=== PATIENT | male | born 1970 | race Caucasian/White ===

== ENCOUNTER 2018-02-24 10:44 | Emergency (ER) | payer BC ==
[2018-02-24 11:56] VITALS: BP 120/70
[2018-02-24] MEDS ORDERED: Tetracaine 0.5% OPTH.SOL 4 ML* 1 DROP BTL ONE (11:58)
[2018-02-24] MEDS ORDERED: BSS OPTH.SOL* BTL ONE (11:58)
[2018-02-24] MEDS ORDERED: Fluorescein Sod TOPICAL 0.6* 0.6 MG TEST OPHTHALMIC ONE (11:58)
--- NOTE | 2018-02-24 13:30 | UC ---
Eye Complaint HPI - HPI Summary HPI Summary: states he woke up yesterday with foreign body sensation on left eye. He states wearing his contact lenses does not bother him. denies discharge but c/o mild photophobia. - History of Current Complaint Chief Complaint: UCEye Stated Complaint: LEFT EYE CONCERN Time Seen by Provider: 02/24/18 12:23 Hx Obtained From: Patient Onset/Duration: Sudden Onset, Lasting Days Timing: Constant Severity Currently: Moderate Pain Intensity: 5 Pain Scale Used: 0-10 Numeric Location of Injury: Globe Character: Foreign Body Sensation Aggravating Factor(s): Nothing Alleviating Factor(s): Nothing Associated Signs And Symptoms: Positive: Photophobia Related History: Similar Episode, Diagnosed As: - corneal abrassion - Risk Factors Penetrating Injury Risk Factor: Negative Globe Rupture Risk Factors: Negative Acute Glaucoma Risk Factors: Negative Optic Artery Occlusion Risk Factors: Negative - Allergies/Home Medications Allergies/Adverse Reactions: Allergies Allergy/AdvReac Type Severity Reaction Status Date / Time No Known Allergies Allergy Verified 02/24/18 11:56 PMH/Surg Hx/FS Hx/Imm Hx Previously Healthy: Yes Endocrine History: Dyslipidemia GI/ History: Gastroesophageal Reflux - Surgical History Surgical History: None - Family History Known Family History: Positive: None - Social History Alcohol Use: Occasionally Substance Use Type: None Smoking Status (MU): Former Smoker Type: Cigarettes Have You Smoked in the Last Year: Yes When Did the Patient Quit Smoking/Using Tobacco: JANUARY 2013 Review of Systems Constitutional: Negative Skin: Negative Eyes: Photophobia ENT: Negative Respiratory: Negative Cardiovascular: Negative Gastrointestinal: Negative Genitourinary: Negative All Other Systems Reviewed And Are Negative: Yes Physical Exam Triage Information Reviewed: Yes Appearance: Well-Appearing, Obese Vital Signs: Initial Vital Signs Temp 98.0 F 02/24/18 11:54 Pulse 64 02/24/18 11:54 Resp 16 02/24/18 11:54 BP 120/70 02/24/18 11:54 Pulse Ox 97 02/24/18 11:54 Vital Signs Reviewed: Yes Eyes: Positive: Conjunctiva Inflamed, Other: - fluorescein uptake on left cornea at 7o'clock, no FB upon inversion of upper eyelid ENT: Positive: Hearing grossly normal, Pharynx normal Neck: Positive: Supple, Nontender, No Lymphadenopathy Eye Complaint Course/Dx - Course Course Of Treatment: corneal abrassion of left eye, start cipro ophthalmic drops as prescribed, f/u with eye clinic and avoid using contact lenses - Differential Dx/Diagnosis Provider Diagnoses: corneal abrasion left eye Discharge - Sign-Out/Discharge Documenting (check all that apply): Patient Departure All imaging exams completed and their final reports reviewed: No Studies - Discharge Plan Condition: Stable Disposition: HOME Prescriptions: Ciprofloxacin 0.3% OPTH.CINDY* [Cipro 0.3% Opth*] 1 drop LEFT EYE Q2H 5 Days #1 btl Patient Education Materials: Ciprofloxacin (Into the eye), Corneal Abrasion (ED ) Referrals: Anthony Rutledge MD [Primary Care Provider] - - Billing Disposition and Condition Condition: STABLE Disposition: Home
== END 2018-02-24 13:07 | disposition home or self-care (01) ==
LOC: UCCORT 10:44
DX: S05.02XA Injury of conjunctiva and corneal abrasion without foreign body, left eye, initial encounter (principal); X58.XXXA Exposure to other specified factors, initial encounter; Y93.9 Activity, unspecified; Y92.9 Unspecified place or not applicable; Z87.891 Personal history of nicotine dependence
CPT/HCPCS: 99202; A9270-GY; G0463